=== PATIENT | female | born 1960 | race Caucasian/White ===

== ENCOUNTER → 2017-10-31 | Outpatient (CLI) | payer BC ==
[~2017-10-31] MED LIST: DULO60CA56 PO; MULT1TAB54 PO; PREG150C33 PO; PROM-110 PO; TRAM-420 PO
--- NOTE | 2017-10-31 14:42 | RADIOLOGY IMAGING REPORT ---
FACILITY: [facility] - [place] PATIENT NAME: Wen Fowler : 1960 MR: [id number] V: [id number] EXAM DATE: ORDERING PHYSICIAN: AN REDDING TECHNOLOGIST: Location: [facility] Patient: Wen Fowler : 1960 Visit/Account:[id number] Date of Sevice: 10/31/2017 AP pelvis, one view, and right hip, one view. HISTORY: Chronic right hip pain, arthritis. COMPARISON: None. Small marginal osteophytes and mild joint space narrowing are present in both hips. Phleboliths proj ect on the true pelvis. The patient is somewhat rotated on the AP pelvis view. Minimal sclerosis an d vacuum phenomenon are present at the pubic symphysis. The sacroiliac joints are unremarkable. Liliana ear lucencies consistent with fat planes project on the pelvis bilaterally. Mild degenerative change s are present in the lower lumbar spine. IMPRESSION: Mild bilateral hip osteoarthritis. Report Dictated By: Braxton Mcghee MD at 10/31/2017 2:36 PM Report E-Signed By: Braxton Mcghee MD at 10/31/2017 2:38 PM WSN:[id number]
--- NOTE | 2017-10-31 16:34 | RADIOLOGY IMAGING REPORT ---
FACILITY: [facility] PATIENT NAME: Wen Fowler : 1960 MR: [id number] V: [id number] EXAM DATE: ORDERING PHYSICIAN: AN REDDING TECHNOLOGIST: [place] [facility] [place] : 1960 Visit/Account:[id number] Date of Sevice: 10/31/2017 DEXA Scan Clinical history: Osteopenia. Comparison: DEXA scan from 06/27/2011. LUMBAR SPINE: The bone mineral density (BMD) measured from L1-L4 correlates with a Z-score -2.0 and a T-score of - 1.8 which is osteopenia as defined by the World Health Organization. The corresponding risk of fract ure in the lumbar spine is 3-4 times compared with a young adult reference population. This value mora s increased by 2.3 % since the prior study. More than 5% change is considered significant. HIP: Bone mineral density (BMD) measured in the Left femoral neck region correlates with a Z-score -0.9 an d a T-score of -1.3 which is osteopenia as defined by the World Health Organization. The correspon ding risk of fracture in the hip is 2-3 times compared with a young adult reference population. The t otal hip value has decreased by 8.6 % since the prior study. More than 5% change is considered signi ficant. Bone mineral density (BMD) measured in the Femoral Neck region measures 0.855 g/cm2. IMPRESSION: 1. Lumbar spine: Osteopenia. There has been No significant change in the bone mineral density since the previous exam. 2. Left Hip: Osteopenia. There has been significant decrease in the bone mineral density of the tot al hip since the previous exam. 3. Femoral Neck: Bone Mineral Density is 0.855 g/cm2 The next DEXA scan of this patient should include the following sites: L1-L4 and the left hip. FRAX? WHO Fracture Risk Assessment Tool link: <http://www.shef.ac.uk/FRAX/tool.jsp?locationValue=9> PLEASE NOTE: 1) The World Health Organization defines low BMD as follows: T-score Normal > -1 Osteopenia < -1 and > -2.5 Osteoporosis < -2.5 without fractures Established osteoporosis < -2.5 with fractures 2) In general, you may wish to consider: Diagnosis Treatment Follow-up DEXA Normal BMD Prevention 2-3 years Osteopenia Prevention/therapy 1-2 years Osteoporosis Therapy Yearly 3) Fracture risk estimated from the T-score is more accurate for vertebral fractures (often spontane ous) than for hip fractures. Report Dictated By: Filiberto Mallory MD at 10/31/2017 4:28 PM Report E-Signed By: Filiberto Mallory MD at 10/31/2017 4:30 PM WSN:[id number]
== END ==
LOC: RAD 13:37
PROVIDERS: ATTEND Family Medicine
DX: M85.80 Other specified disorders of bone density and structure, unspecified site (principal); M16.0 Bilateral primary osteoarthritis of hip
CPT/HCPCS: 77080